=== PATIENT | male | born 1960 | race Caucasian/White ===

== ENCOUNTER 2018-01-22 09:26 | Day surgery (SDC) | payer OTHER ==
[~2018-01-22] VITALS: Ht 177.8 cm; Wt 86.6 kg
[~2018-01-22 09:26] MED LIST: AMOCLA875 PO; ASPI325 PO; ASPI325EC PO; Aspirin EC81 MG PO; Augmentin 875-1 EACH PO; HYDR1TAB94 PO; LAVAP17G PO; METO25ER PO; Norco 5-325 Ta1 EACH PO; OMEP20ER PO; ONDA8 PO; PRED20 PO; PROM25 PO
== END 2018-01-22 10:19 | disposition home or self-care (01) ==
LOC: ORSCSDS 09:26
PROVIDERS: Internal Medicine Gastroenterology
PROC: 0DB68ZX Excision of Stomach, Via Natural or Artificial Opening Endoscopic, Diagnostic (ICD-10-PCS; principal; 2018-01-22 10:45)
DX: C85.99 Non-Hodgkin lymphoma, unspecified, extranodal and solid organ sites (principal); K21.9 Gastro-esophageal reflux disease without esophagitis; K29.00 Acute gastritis without bleeding; I48.0 Paroxysmal atrial fibrillation; Z87.891 Personal history of nicotine dependence
CPT/HCPCS: 88305; 88342; J7120

== ENCOUNTER 2019-03-04 08:51 | Day surgery (SDC) | payer OTHER ==
[~2019-03-04] VITALS: Ht 177.8 cm; Wt 92.8 kg
== END 2019-03-04 10:15 | disposition home or self-care (01) ==
LOC: ORSCSDS 08:51
PROVIDERS: Internal Medicine Gastroenterology
PROC: 0DB68ZX Excision of Stomach, Via Natural or Artificial Opening Endoscopic, Diagnostic (ICD-10-PCS; principal; 2019-03-04 10:15)
DX: Z13.810 Encounter for screening for upper gastrointestinal disorder (principal); Z85.028 Personal history of other malignant neoplasm of stomach; K20.8 Other esophagitis; I48.0 Paroxysmal atrial fibrillation; E78.5 Hyperlipidemia, unspecified; Z87.891 Personal history of nicotine dependence
CPT/HCPCS: 88305; 88341; 88342; J2704; J7120

== ENCOUNTER 2020-08-17 10:53 | Day surgery (SDC) | payer OTHER ==
[~2020-08-17] VITALS: Ht 177.8 cm; Wt 89.1 kg
== END 2020-08-17 13:53 | disposition home or self-care (01) ==
LOC: ORSCSDS 10:53
PROVIDERS: Internal Medicine Gastroenterology
PROC: 0DBH8ZX Excision of Cecum, Via Natural or Artificial Opening Endoscopic, Diagnostic (ICD-10-PCS; principal; 2020-08-17 12:15)
PROC: 0DBM8ZX Excision of Descending Colon, Via Natural or Artificial Opening Endoscopic, Diagnostic (ICD-10-PCS; principal; 2020-08-17 12:15)
PROC: 0DB78ZX Excision of Stomach, Pylorus, Via Natural or Artificial Opening Endoscopic, Diagnostic (ICD-10-PCS; principal; 2020-08-17 12:15)
PROC: 0DBK8ZX Excision of Ascending Colon, Via Natural or Artificial Opening Endoscopic, Diagnostic (ICD-10-PCS; principal; 2020-08-17 12:15)
DX: Z12.11 Encounter for screening for malignant neoplasm of colon (principal); Z86.010 Personal history of colon polyps; Z85.72 Personal history of non-Hodgkin lymphomas; D12.0 Benign neoplasm of cecum; D12.2 Benign neoplasm of ascending colon; D12.4 Benign neoplasm of descending colon; K44.9 Diaphragmatic hernia without obstruction or gangrene; K64.8 Other hemorrhoids; I48.0 Paroxysmal atrial fibrillation; E78.5 Hyperlipidemia, unspecified
CPT/HCPCS: 88305; 88341; 88342; J2704; J7120